=== PATIENT | female | born 1990 | race American Indian/Alaskan Native ===

== ENCOUNTER 2016-05-27 09:29 | Inpatient (IN) | payer MEDICAID ==
[2016-05-27] MEDS ORDERED: LACTATED RINGERS 1,000 ML IV SCH ×2 (10:00→11:00)
[2016-05-27] MEDS ORDERED: SUBLIMAZE ONE (10:00)
[2016-05-27 10:18] LABS: Hematocrit 32.6 % (30.3-42.9); Hemoglobin 10.3 gm/dl (10.1-14.3); Mean Corpuscular HGB Conc 32 % (30-34); Mean Corpuscular Volume 73 fl (79-97); Platelet Count 252 K/mm3 (140-440); Red Blood Count 4.46 M/mm3 (3.65-5.03); Red Cell Distribution Width 19.2 % (13.2-15.2); White Blood Count 6.8 K/mm3 (4.5-11.0)
[2016-05-27 10:28] LABS: Mean Corpuscular Hemoglobin 23 pg (28-32)
--- NOTE | 2016-05-27 10:31 | History and Physical Report ---
History of Present Illness Date of examination: 05/27/16 (sent from OB office in active labor) Date of admission: 05/27/16 09:29 Chief complaint: ctx starting this AM History of present illness: EDC 05-20-16 Past History : 4 Term Births: 3 Living Children: 4 Para: 3 # 1 Delivery date: 2010 Weeks Gestation: term Delivery type: Anesthesia type: epidural Delivery location: [facility] Sex: Female weight: 6 Comments: denies complications # 2 Delivery date: 2011 Weeks Gestation: term Delivery type: Anesthesia type: epidural Delivery location: [facility] Sex: Male weight: 8 Comments: denies complications # 3 Delivery date: 2012 Weeks Gestation: term Delivery type: Anesthesia type: epidural Delivery location: [facility] Infant Sex: Female weight: 6 Comments: denies complications Past Medical History: Negative Past Medical History Past Surgical History: Negative Past Surgical History Past Medical History 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 Infection History Hx of STD: chlamydia HIV Risk Eval: low risk Hepatitis B Risk Eval: low risk Personal hx. of genital herpes: no Partner hx. of genital herpes: no Rash, Viral, or Febrile illness since last LMP? no Varicella/Chicken Pox Status: Previous Disease TB Risk: no Genetic History Congenital Heart Defect: Mom: no Dad: no Roosevelt Disease: Mom: no Dad: no Thalassemia Mom: no Dad: no Neural Tube Defect Mom: no Dad: no Down's Syndrome Mom: no Dad: no Carl-Sachs Mom: no Dad: no Sickle Cell Disease/Trait Mom: no Dad: no Hemophilia Mom: no Dad: no Muscular Dystrophy Mom: no Dad: no Cystic Fibrosis Mom: no Dad: no Hobbs Chorea Mom: no Dad: no Mental Retardation Mom: no Dad: no Fragile X Mom: no Dad: no Other Genetic/Chromosomal Disorder Mom: no Dad: no Child w/other defect Mom: no Dad: no Enviromental Exposures Xray Exposure: no Medication, drug, or alcohol use since LMP: no Chemical/Other Exposure: no Exposure to Cat Liter: no Hx of Parvovirus (Fifth Disease): no Occupational Exposure to Children: none Current Allergies: No known allergies Laboratory Results Date/Time Collected: 11/18/2015 Routine Urinalysis Leukocytes: trace Nitrite: negative Urobilinogen: negative Protein: Negative Blood: negative Ketone: negative Bilirubin: negative Glucose: Negative Urine HCG: positive Review of Systems General Denies fever, chills, sweats, anorexia, fatigue, weakness, malaise, weight loss and sleep disorder. Denies nausea, vomiting, headache, swelling of legs, abdominal pain, vaginal discharge, vaginal bleeding and contractions. Denies vaginal discharge, incontinence, dysuria, hematuria, urinary frequency, amenorrhea, menorrhagia, abnormal vaginal bleeding, pelvic pain, genital sores, decreased libido, painful periods, painful sex, urinary urgency, hot flashes, vaginal dryness, vaginal itching and vaginal odor. CV Denies chest pains, palpitations, syncope, dyspnea on exertion, orthopnea, PND and peripheral edema. Resp Denies cough, dyspnea at rest, excessive sputum, hemoptysis, wheezing and pleurisy. GI Denies nausea, vomiting, diarrhea, constipation, change in bowel habits, abdominal pain, melena, hematochezia, jaundice, gas/bloating, indigestion/ heartburn, dysphagia and odynophagia. Endo Denies cold intolerance, heat intolerance, polydipsia, polyphagia, polyuria and unusual weight change. Breast Denies left breast lump, right breast lump, nipple discharge, bloody discharge from nipple, breast pain, abnormal mammogram and breast enlargement. MS Denies back pain, joint pain, joint swelling, muscle cramps, muscle weakness, stiffness, arthritis, sciatica, restless legs, leg pain at night and leg pain with exertion. Derm Denies rash, itching, dryness and suspicious lesions. Neuro Denies paralysis, paresthesias, headache, seizures, tremors, vertigo, transient blindness, frequent falls, frequent headaches and difficulty walking. Psych Denies depression, anxiety, irritability and mood swings. Eyes Denies blurring, diplopia, irritation, discharge, vision loss, eye pain and photophobia. ENT Denies earache, ear discharge, tinnitus, decreased hearing, nasal congestion, nosebleeds, sore throat and hoarseness. Allergy Denies urticaria, allergic rash, hay fever and recurrent infections. Heme Denies abnormal bruising, bleeding and enlarged lymph nodes. PHYSICAL EXAM HEENT: PERRLA, normal conjunctiva, external nose and nasal mucosa normal, oropharynx clear Neck/Thyroid: supple, thyroid normal Skin no significant abnormal lesions or rashes Chest: respiratory effort normal, clear to auscultation Breasts: normal without skin changes or masses CV: regular, normal S1-S2, no murmur, no rub, no gallop Abdomen: normal bowel sounds, soft, nontender, no HSM Musculoskeletal: grossly normal ROM in joints, no joint tenderness or muscle weakness Neuro: grossly normal DTRs, sensation, strength, cranial nerves Extremities: no clubbing, cyanosis, or edema [employer] Exams Vulva/Vagina: No lesions, normal BUS, normal rugae Cervix: No lesions; no cervical motion tenderness Uterus: normal size and position, midline, mobile Adnexae: no masses or tenderness Rectovaginal: no masses or tenderness Past History - Obstetrical History Expected Date of Delivery: 05/20/16 Actual Gestation: 41 Week(s) 0 Day(s) : 4 Para: 3 Number of Living Children: 3 Medications and Allergies Allergies Allergy/AdvReac Type Severity Reaction Status Date / Time No Known Allergies Allergy Verified 04/12/16 15:48 Home Medications Medication Instructions Recorded Confirmed Last Taken Type Vit-Fe Fumar-FA [ 1 tab PO QDAY 04/12/16 05/27/16 05/20/16 History Vitamin] Active Meds: Active Medications Fentanyl (Sublimaze) 100 mcg IV ONCE ONE Stop: 05/27/16 10:07 Lactated Ringer's (Lactated Ringers) 1,000 mls @ 125 mls/hr IV DIRECT YADIRA Last Admin: 05/27/16 10:15 Dose: 125 mls/hr - Vital Signs Vital signs: Vital Signs Pulse BP 77 122/80 05/27/16 09:29 05/27/16 09:29 Temp Pulse Resp BP Pulse Ox 97.1 F L 77 20 122/80 05/27/16 09:44 05/27/16 09:29 05/27/16 10:19 05/27/16 09:44 - Physical Exam Breasts: Positive: deferred Cardiovascular: Regular rate, Normal S1, Normal S2 Lungs: Positive: Normal air movement Abdomen: Positive: normal appearance, soft, normal bowel sounds. Negative: distention, tenderness Genitourinary (Female): Positive: normal external genitalia, normal perenium Vulva: both: normal Vagina: Positive: normal moisture. Negative: discharge Cervix: Negative: lesion, discharge Uterus: Positive: normal size, normal contour Adnexa: both: normal Anus/Rectum: Positive: normal perianal skin, heme negative. Negative: rectal mass, hemorrhoids Extremities: Positive: normal Deep Tendon Reflex Grade: Normal +2 - Obstetrical FHR: category 1 Uterine Contraction Monitor Mode: External Cervical Dilatation: 5.5 Cervical Effacement Percentage: 70 station: -1 Uterine Contraction Pattern: Regular Uterine Contraction Intensity: Moderate Results Result Diagrams: 05/27/16 10:00 All other labs normal. Laboratory Data-Patient Name: RAUL BAUTISTA Test Date Result Blood Type 12/02/2015 O Rh 12/02/2015 Positive Antibody Screen negative Rubella 12/02/2015 IMMUNE Serology (RPR) 12/02/2015 NR HBsAg 12/02/2015 Negative Hemoglobin 02/11/2016 9.4 Hematocrit 02/11/2016 28.9 Platelets 12/02/2015 282 [id number] Chlamydia DNA 11/19/2015 Negative GC DNA/Culture 11/19/2015 Urine Culture 12/02/2015 Final report Group B Strep cult Negative PAP HIV 12/02/2015 AFP/Quad Screen 12/02/2015 Glucola Test 3hr GTT (Fasting) 1 hr 2 hr 3 hr [facility]-Patient Name:RAUL BAUTISTA Test Date Result Varicella Ab Sickle Cell 12/02/2015 Negative PPD Fibronectin Cystic Fibrosis Parvovirus TSH Free T4 Hepatitis C ALT AST Uric Acid Creatinine 24 hr Urine Protein KATI Assessment and Plan - Patient Problems (1) 41 weeks gestation of Onset Date: ~05/27/16 Current Visit: Yes Status: Acute Plan to address problem: pt sent from OB office in active labor SVE in office 5-6, 70,0 with BBOW GBS negative Orders in EMR
[2016-05-27] MEDS ORDERED: ZOFRAN IV PRN (11:00)
[2016-05-27] MEDS ORDERED: MINERAL OIL PO PRN (11:00)
[2016-05-27] MEDS ORDERED: SUBLIMAZE IV ONE (11:00)
[2016-05-27] MEDS ORDERED: ePHEDrine SULFATE IV PRN (11:00)
[2016-05-27] MEDS ORDERED: PITOCin/NS 20 UNIT/1000ML DRIP 20 UNITS/1,000 ML BAG IV SCH (11:00)
[2016-05-27] MEDS ORDERED: PITOCin/NS 30 UNIT/500ML 30 UNITS/500 ML BAG IV SCH (11:00)
[2016-05-27] MEDS ORDERED: XYLOCAINE 2% INFILTRATI ONE (11:00)
[2016-05-27] MEDS ORDERED: BRETHINE SUB-Q PRN (11:00)
--- NOTE | 2016-05-27 11:28 | Progress Note ---
Assessment and Plan - Patient Problems (1) 41 weeks gestation of Onset Date: ~05/27/16 Current Visit: Yes Status: Acute Plan to address problem: anticipate delivery Will Rupture bag after epidural is placed Pt tolerating labor well. Subjective - Subjective Date of service: 05/27/16 (bolusing for epidural; pt c/o pressure) Interval history: EDC 05-20-16 Past History : 4 Term Births: 3 Living Children: 4 Para: 3 # 1 Delivery date: 2010 Weeks Gestation: term Delivery type: Anesthesia type: epidural Delivery location: [facility] Sex: Female weight: 6 Comments: denies complications # 2 Delivery date: 2011 Weeks Gestation: term Delivery type: Anesthesia type: epidural Delivery location: [facility] Infant Sex: Male weight: 8 Comments: denies complications # 3 Delivery date: 2012 Weeks Gestation: term Delivery type: Anesthesia type: epidural Delivery location: [facility] Sex: Female weight: 6 Comments: denies complications Past Medical History: Negative Past Medical History Past Surgical History: Negative Past Surgical History Past Medical History 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 Infection History Hx of STD: chlamydia HIV Risk Eval: low risk Hepatitis B Risk Eval: low risk Personal hx. of genital herpes: no Partner hx. of genital herpes: no Rash, Viral, or Febrile illness since last LMP? no Varicella/Chicken Pox Status: Previous Disease TB Risk: no Genetic History Congenital Heart Defect: Mom: no Dad: no Roosevelt Disease: Mom: no Dad: no Thalassemia Mom: no Dad: no Neural Tube Defect Mom: no Dad: no Down's Syndrome Mom: no Dad: no Carl-Sachs Mom: no Dad: no Sickle Cell Disease/Trait Mom: no Dad: no Hemophilia Mom: no Dad: no Muscular Dystrophy Mom: no Dad: no Cystic Fibrosis Mom: no Dad: no Purvi Chorea Mom: no Dad: no Mental Retardation Mom: no Dad: no Fragile X Mom: no Dad: no Other Genetic/Chromosomal Disorder Mom: no Dad: no Child w/other defect Mom: no Dad: no Enviromental Exposures Xray Exposure: no Medication, drug, or alcohol use since LMP: no Chemical/Other Exposure: no Exposure to Cat Liter: no Hx of Parvovirus (Fifth Disease): no Occupational Exposure to Children: none Current Allergies: No known allergies Laboratory Results Date/Time Collected: 11/18/2015 Routine Urinalysis Leukocytes: trace Nitrite: negative Urobilinogen: negative Protein: Negative Blood: negative Ketone: negative Bilirubin: negative Glucose: Negative Urine HCG: positive Review of Systems General Denies fever, chills, sweats, anorexia, fatigue, weakness, malaise, weight loss and sleep disorder. Denies nausea, vomiting, headache, swelling of legs, abdominal pain, vaginal discharge, vaginal bleeding and contractions. Denies vaginal discharge, incontinence, dysuria, hematuria, urinary frequency, amenorrhea, menorrhagia, abnormal vaginal bleeding, pelvic pain, genital sores, decreased libido, painful periods, painful sex, urinary urgency, hot flashes, vaginal dryness, vaginal itching and vaginal odor. CV Denies chest pains, palpitations, syncope, dyspnea on exertion, orthopnea, PND and peripheral edema. Resp Denies cough, dyspnea at rest, excessive sputum, hemoptysis, wheezing and pleurisy. GI Denies nausea, vomiting, diarrhea, constipation, change in bowel habits, abdominal pain, melena, hematochezia, jaundice, gas/bloating, indigestion/ heartburn, dysphagia and odynophagia. Endo Denies cold intolerance, heat intolerance, polydipsia, polyphagia, polyuria and unusual weight change. Breast Denies left breast lump, right breast lump, nipple discharge, bloody discharge from nipple, breast pain, abnormal mammogram and breast enlargement. MS Denies back pain, joint pain, joint swelling, muscle cramps, muscle weakness, stiffness, arthritis, sciatica, restless legs, leg pain at night and leg pain with exertion. Derm Denies rash, itching, dryness and suspicious lesions. Neuro Denies paralysis, paresthesias, headache, seizures, tremors, vertigo, transient blindness, frequent falls, frequent headaches and difficulty walking. Psych Denies depression, anxiety, irritability and mood swings. Eyes Denies blurring, diplopia, irritation, discharge, vision loss, eye pain and photophobia. ENT Denies earache, ear discharge, tinnitus, decreased hearing, nasal congestion, nosebleeds, sore throat and hoarseness. Allergy Denies urticaria, allergic rash, hay fever and recurrent infections. Heme Denies abnormal bruising, bleeding and enlarged lymph nodes. PHYSICAL EXAM HEENT: PERRLA, normal conjunctiva, external nose and nasal mucosa normal, oropharynx clear Neck/Thyroid: supple, thyroid normal Skin no significant abnormal lesions or rashes Chest: respiratory effort normal, clear to auscultation Breasts: normal without skin changes or masses CV: regular, normal S1-S2, no murmur, no rub, no gallop Abdomen: normal bowel sounds, soft, nontender, no HSM Musculoskeletal: grossly normal ROM in joints, no joint tenderness or muscle weakness Neuro: grossly normal DTRs, sensation, strength, cranial nerves Extremities: no clubbing, cyanosis, or edema [employer]ATTLE [employer] Exams Vulva/Vagina: No lesions, normal BUS, normal rugae Cervix: No lesions; no cervical motion tenderness Uterus: normal size and position, midline, mobile Adnexae: no masses or tenderness Rectovaginal: no masses or tenderness Patient reports: movement normal Objective - Vital Signs Vital Signs: Vital Signs - 12hr 05/27/16 05/27/16 05/27/16 09:29 09:44 10:19 Temperature 97.1 F L Pulse Rate 77 Respiratory 18 20 Rate Blood Pressure 122/80 Blood Pressure 122/80 [Left Arm] O2 Sat by Pulse Oximetry 05/27/16 05/27/16 05/27/16 10:49 11:05 11:23 Temperature Pulse Rate 64 104 H Respiratory 20 Rate Blood Pressure 126/87 Blood Pressure [Left Arm] O2 Sat by Pulse 62 L Oximetry 05/27/16 11:24 Temperature Pulse Rate 76 Respiratory Rate Blood Pressure Blood Pressure [Left Arm] O2 Sat by Pulse 100 Oximetry - Exam Breasts: deferred Cardiovascular: Regular rate Lungs: Normal air movement Abdomen: Present: normal appearance, soft. Absent: distention, tenderness Vulva: both: normal Uterus: Present: normal FHR: auscultation normal, category 1 Uterine Contraction Monitor Mode: External Cervical Dilatation: 7.5 (BBOW) Cervical Effacement Percentage: 100 station: 0 Uterine Contraction Pattern: Regular Uterine Tone Measurement Phase: Resting Uterine Contraction Intensity: Moderate Extremities: normal Deep Tendon Reflex Grade: Normal +2 - Labs Labs: Abnormal Labs 05/27/16 10:00 MCV 73 L MCH 23 L RDW 19.2 H Laboratory Results - last 24 hr 05/27/16 05/27/16 10:00 10:00 WBC 6.8 RBC 4.46 Hgb 10.3 Hct 32.6 MCV 73 L MCH 23 L MCHC 32 RDW 19.2 H Plt Count 252 Blood Type O POSITIVE Antibody Screen Negative
[2016-05-27] MEDS ORDERED: METHERGINE IM ONE (11:42)
[2016-05-27] MEDS ORDERED: METHERGINE IM PRN (11:59)
--- NOTE | 2016-05-27 11:59 | Procedure Note ---
OB Delivery Note - Delivery Date of Delivery: 05/27/16 Appellate Conferee: SERENE MCKENZIE Estimated blood loss: other (400cc) - Vaginal Delivery presentation: vertex Delivery position: OA Intrapartum events: meconium (NICU team present for delivery) Delivery induction: none Delivery monitor: external FHT, external uterine Route of delivery: Delivery placenta: spontaneous Delivery cord: 3 umbilical vessels Episiotomy: none Delivery laceration: none Anesthesia: none Delivery comments: live born male over intact perineum Baby handed to waiting NICU team due to thick meconium Cord blood obt Placenta and membrane del complete and intact, 3 vessel cord. Uterus boggy Clots expressed Methergin IM given 8/9, EBL 400, Wgt 7-11 Mom and baby remain LDR stable FF @ umb Lochia mod - Infant A at 1 minute: 8 at 5 minutes: 9 Gender: Male (wgt 7-11)
[2016-05-27] MEDS ORDERED: TYLENOL PO PRN (12:01)
[2016-05-27] MEDS ORDERED: MILK OF MAGNESIA PO PRN (12:01)
[2016-05-27] MEDS ORDERED: LANSINOH TP PRN (12:01)
[2016-05-27] MEDS ORDERED: BENADRYL PO PRN (12:01)
[2016-05-27] MEDS ORDERED: TUCKS PAD TP PRN (12:01)
[2016-05-27] MEDS ORDERED: PHENERGAN PO PRN (12:01)
[2016-05-27] MEDS ORDERED: DULCOLAX PR PRN (12:01)
[2016-05-27] MEDS ORDERED: DERMOPLAST TP PRN (12:01)
[2016-05-27] MEDS ORDERED: SODIUM CHLORIDE FLUSH SYRINGE 10 ML IV NR (13:00)
[2016-05-27] MEDS: METHERGINE PO SCH ×2 (14:10→22:22)
[2016-05-27] MEDS: NORCO 5/325 PO PRN (14:10)
[2016-05-27] MEDS: MOTRIN PO SCH ×2 (14:11→22:22)
[2016-05-27] MEDS: COLACE PO SCH (22:23)
[2016-05-28 00:45] LABS: Hematocrit 32.6 % (30.3-42.9); Hemoglobin 10.2 gm/dl (10.1-14.3)
[2016-05-28] MEDS: MOTRIN PO SCH ×4 (01:01→23:32)
[2016-05-28] MEDS: METHERGINE PO SCH (05:50)
[2016-05-28] MEDS ORDERED: BOOSTRIX IM ONE (06:00)
[2016-05-28] MEDS ORDERED: M-M-R II VACCINE SUB-Q ONE (06:00)
--- NOTE | 2016-05-28 08:41 | Progress Note ---
Assessment and Plan patient doing well w/o complaints. LIBBY Tolentino, H&H 10.2/32.6. Plan for d/c home today w/ routine f/u in office. - Patient Problems (1) (normal spontaneous vaginal delivery) Current Visit: Yes Status: Acute Subjective - Subjective Date of service: 05/28/16 Principal diagnosis: day #1 s/p Patient reports: appetite normal, voiding normally, pain well controlled, ambulating normally, no dizzy ambulation, no nauseated : doing well, nursing well Objective - Vital Signs Latest vital signs: Vital Signs Temp Pulse Pulse Resp BP BP Pulse Ox 05/28/16 04:45 98.6 F 68 16 112/67 05/28/16 00:25 98.6 F 67 16 102/67 05/27/16 22:22 18 05/27/16 19:30 98.6 F 77 16 122/70 05/27/16 16:04 98.4 F 54 L 18 114/73 05/27/16 13:15 98.3 F 64 20 113/77 05/27/16 12:28 96 H 129/72 05/27/16 12:07 85 182/83 05/27/16 11:43 90 149/69 05/27/16 11:34 89 99 05/27/16 11:29 98 H 100 05/27/16 11:24 76 100 05/27/16 11:23 104 H 62 L 05/27/16 11:05 64 126/87 05/27/16 10:49 20 05/27/16 10:19 20 05/27/16 09:44 97.1 F L 18 122/80 05/27/16 09:29 77 122/80 Intake and Output 05/27/16 05/28/16 05/28/16 22:59 06:59 14:59 Intake Total 485 700 Output Total 1000 Balance -515 700 Intake: IV 125 Left Hand 125 Oral 360 Intake, Free Water 700 Output: Urine 1000 Void 1000 Other: Total, Intake Amount 360 Total, Output Amount 300 - Exam Breasts: Present: normal, Cardiovascular: Present: Regular rate Lungs: Present: Clear to auscultation, Normal air movement Abdomen: Present: normal appearance, soft, normal bowel sounds Vulva: both: normal Uterus: Present: normal, firm, fundal height at umbilicus Extremities: Present: normal Deep Tendon Reflex Grade: Normal +2 - Labs Labs: Abnormal lab results 05/27/16 Range/Units 10:00 MCV 73 L (79-97) fl MCH 23 L (28-32) pg RDW 19.2 H (13.2-15.2) %
--- NOTE | 2016-05-28 08:44 | Discharge Summary ---
Providers - Providers Date of Admission: 05/27/16 09:29 Date of discharge: 05/28/16 (desires d/c home) Attending physician: TERI SMITH Primary care physician: GINA HERNANDEZ Hospitalization Reason for admission: active labor Delivery: Episiotomy: none Laceration: none Other procedures: none complications: none Discharge diagnosis: IUP at term delivered baby: male Hospital course: uncomplicated vaginal Condition at discharge: Good Disposition: DISCHARGED TO HOME OR SELFCARE - Discharge Diagnoses (1) (normal spontaneous vaginal delivery) Status: Acute Plan - Discharge Medications Prescriptions: Ibuprofen [Motrin 800 MG tab] 800 mg PO Q8HR PRN #30 tablet PRN Reason: Pain Lidocain2.5%/Prilocai2.5% [Emla] 5 gm TP ONCE PRN #1 tube PRN Reason: Pain - Provider Discharge Summary Activity: routine, no sex for 6 weeks, no heavy lifting 4 weeks, no strenuous exercise Diet: routine Instructions: routine Additional instructions: [] Smoking cessation referral if applicable(refer to patient education folder for contact #) [] Refer to [facility]'s [facility] Booklet Call your doctor immediately for: * Fever > 100.5 * Heavy vaginal bleeding ( >1 pad per hour) * Severe persistent headache * Shortness of breath * Reddened, hot, painful area to leg or breast * Drainage or odor from incision. * Keep incision clean and dry at all times and follow doctor's instructions regarding bathing/showering - Follow up plan Follow up: GINA HERNANDEZ MD [Primary Care Provider] - 7 Days (Congratulations! Please call [phone] to scheudule your son's circumcision in 1 week and your visit in 4 weeks. Bring EMLA cream to your son's visit and await further instructions. Call for any questions or concerns. )
[2016-05-28] MEDS: NORCO 5/325 PO PRN (10:39)
[2016-05-28] MEDS: PRENATAL VITAMIN PO SCH (10:39)
[2016-05-28] MEDS: COLACE PO SCH (21:33)
[2016-05-29] MEDS: MOTRIN PO SCH ×2 (05:26→08:53)
[2016-05-29 08:46] VITALS: BP 108/67
[2016-05-29] MEDS: PRENATAL VITAMIN PO SCH (08:55)
[2016-05-29] MEDS: COLACE PO SCH (08:55)
== END 2016-05-29 14:00 | disposition home or self-care (01) | DRG 775 ==
LOC: LD 09:29 → OB 13:41
PROVIDERS: ADMIT Obstetrics & Gynecology; ATTEND Obstetrics & Gynecology
PROC: 10E0XZZ Delivery of Products of Conception, External Approach (ICD-10-PCS; principal; 2016-05-27)
PROC: 3E0234Z Introduction of Serum, Toxoid and Vaccine into Muscle, Percutaneous Approach (ICD-10-PCS; 2016-05-27)
DX: O77.0 Labor and delivery complicated by meconium in amniotic fluid (principal); Z3A.41 41 weeks gestation of pregnancy; Z37.0 Single live birth
CPT/HCPCS: 36415; 85014; 85018; 85027; 86592; 86850; 86900; 86901; 88307; 90715; 99211; G0463; J2210; J2590; J3010; J7120

== ENCOUNTER 2017-09-09 09:38 | Inpatient (IN) | payer MEDICAID ==
--- NOTE | 2017-09-08 17:10 | History and Physical Report ---
History of Present Illness Date of examination: 09/08/17 History of present illness: Admitted for primary section due to persistent breech presentation. Menstrual History Regularity: regular Menses every: 28 days Duration: 5 LMP: 12/09/2016 LMP reliability: definite LMP character: normal test type: urine test Date: 02/15/2017 BC at conception: none EDC Calculations LMP: 09/15/2017 EDC Confirmation: 09/15/2017 Past History : 5 Term Births: 4 Living Children: 4 Para: 4 # 1 Delivery date: 2010 Weeks Gestation: term Delivery type: Anesthesia type: epidural Delivery location: [facility] Sex: Female weight: 6 Comments: denies complications # 2 Delivery date: 2011 Weeks Gestation: term Delivery type: Anesthesia type: epidural Delivery location: [facility] Sex: Male weight: 8 Comments: denies complications # 3 Delivery date: 2012 Weeks Gestation: term Delivery type: Anesthesia type: epidural Delivery location: [facility] Infant Sex: Female weight: 6 Comments: denies complications # 4 Delivery date: 05/27/2016 Weeks Gestation: 41 Delivery type: Vaginal Anesthesia type: none Delivery location: [facility] Sex: male weight: 7.69 Comments: postdates; meconium Past Medical History: Negative Past Medical History Past Surgical History: Negative Past Surgical History Past Medical History Abnormal PAP: negative NABIL Exposure: negative Infertility: negative Uterine Anomaly: negative Uterine Surgery (not C/S): negative Other Gynecologic Problems: negative Social Hx: Patient is single Smoking History: Patient has never smoked. Infection History Hx of STD: none HIV Risk Eval: low risk Hepatitis B Risk Eval: low risk Personal hx. of genital herpes: no Partner hx. of genital herpes: no Varicella/Chicken Pox Status: Previous Disease TB Risk: no Genetic History Congenital Heart Defect: Mom: no Dad: no Roosevelt Disease: Mom: no Dad: no Thalassemia Mom: no Dad: no Neural Tube Defect Mom: no Dad: no Down's Syndrome Mom: no Dad: no Carl-Sachs Mom: no Dad: no Sickle Cell Disease/Trait Mom: no Dad: no Hemophilia Mom: no Dad: no Muscular Dystrophy Mom: no Dad: no Cystic Fibrosis Mom: no Dad: no Purvi Chorea Mom: no Dad: no Mental Retardation Mom: no Dad: no Fragile X Mom: no Dad: no Other Genetic/Chromosomal Disorder Mom: no Dad: no Child w/other defect Mom: no Dad: no Enviromental Exposures Xray Exposure: no Medication, drug, or alcohol use since LMP: no Chemical/Other Exposure: no Exposure to Cat Liter: no Hx of Parvovirus (Fifth Disease): no Occupational Exposure to Children: none FALSECurrent Allergies: No known allergies Past History Past Medical History: other (See HPI) Past Surgical History: other (See HPI) TELEMARKETING AGENT History: other (See HPI) Family/Genetic History: other (See HPI) Social history: single, full code, other (See HPI) - Obstetrical History Expected Date of Delivery: 09/15/17 Actual Gestation: 39 Week(s) 1 Day(s) : 5 Para: 4 Hx # Term Pregnancies: 4 Number of Pregnancies: 0 Spontaneous Abortions: 0 Induced : 0 Number of Living Children: 4 Medications and Allergies Allergies Allergy/AdvReac Type Severity Reaction Status Date / Time No Known Allergies Allergy Verified 04/12/16 15:48 Home Medications Medication Instructions Recorded Confirmed Last Taken Type Vit-Fe Fumar-FA [ 1 tab PO QDAY 04/12/16 09/09/17 09/08/17 08: 00 History Vitamin] 1 TAB Ibuprofen [Motrin 800 MG tab] 800 mg PO Q6H PRN #30 tablet 09/09/17 Unknown Rx oxyCODONE /ACETAMINOPHEN [Percocet 1 - 2 tab PO Q4H PRN #30 tablet 09/09/17 Unknown Rx 5/325 mg] Results Result Diagrams: 09/09/17 10:30 All other labs normal. Assessment and Plan - Patient Problems (1) Breech presentation of fetus Current Visit: No Status: Acute Qualifiers: Fetus number: single or unspecified fetus Qualified Code(s): O32.1XX0 - Maternal care for breech presentation, not applicable or unspecified Plan to address problem: Discuss the risks of the surgery including infection, bleeding possibly heavy enough to require a blood transfusion, possible damage to bowel, bladder or ureter. Her questions were answered. Patient understands and desires to proceed (2) with 39 completed weeks gestation Current Visit: No Status: Acute
[2017-09-09] MEDS ORDERED: PITOCin/NS 20 UNIT/1000ML DRIP 20 UNITS/1,000 ML BAG IV SCH ×2 (10:00→14:33)
[2017-09-09] MEDS ORDERED: PEPCID IV NR (10:00)
[2017-09-09] MEDS ORDERED: BICITRA PO NR (10:00)
[2017-09-09] MEDS ORDERED: ANCEF/STERILE WATER 2 GM/20 ML 2 GM/20 ML SYRINGE IV NR (10:00)
[2017-09-09] MEDS ORDERED: REGLAN IV NR (10:00)
[2017-09-09 11:03] LABS: Basophils % (Auto) 0.3 % (0.0-1.8); Eosinophils % (Auto) 0.7 % (0.0-4.3); Hematocrit 31.5 % (30.3-42.9); Hemoglobin 9.9 gm/dl (10.1-14.3); Lymphocytes % (Auto) 36.2 % (13.4-35.0); Mean Corpuscular HGB Conc 32 % (30-34); Mean Corpuscular Volume 73 fl (79-97); Monocytes # (Auto) 0.6 K/mm3 (0.0-0.8); Monocytes % (Auto) 11.4 % (0.0-7.3); Platelet Count 244 K/mm3 (140-440)
[2017-09-09 11:04] LABS: Mean Corpuscular Hemoglobin 23 pg (28-32)
[2017-09-09] MEDS: LACTATED RINGERS 1,000 ML IV SCH ×2 (11:34→11:35)
[2017-09-09] MEDS ORDERED: NACL 0.9% IR ONE (11:42)
[2017-09-09] MEDS ORDERED: WATER FOR IRRIG STERILE IR ONE (11:42)
[2017-09-09] MEDS ORDERED: MORPHINE ONE (11:45)
--- NOTE | 2017-09-09 11:51 | Ultrasound Report ---
ULTRASOUND OB LIMITED History: Position Technique: Transabdominal ultrasound with Doppler interrogation. Gestation: Single Position: Transverse with head to maternal left Heart Rate: 162 BPM
[2017-09-09] MEDS ORDERED: TORADOL ONE (12:14)
[2017-09-09] MEDS ORDERED: NEO SYNEPHRINE/NS Syringe(OR USE) IV ONE (12:15)
--- NOTE | 2017-09-09 13:00 | Operative Report ---
Operative Report Operative Report: Date of procedure: 09/09/2017 Pre-operative diagnosis: Breech Presentation at 39 weeks gestation Post-operative diagnosis: Transverse presentation, meconium stained fluid Procedure name(s): Primary low transverse section Surgeon: Shine Douglas MD Reed Fixer: Talisha Andre CST Anesthesia: Spinal EBL: 900 mL Complications: Right uterine artery laceration Findings: Normal uterus tubes and ovaries, female transverse presentation , weight 7 lb. 2 oz., Apgars 8 at 1 minute 9 at 5 minutes. Meconium-stained fluid Specimen(s): None Procedure: The patient was brought to the operating room. A spinal was placed without any complications. She was then placed in left lateral tilt. Prepped and draped in the usual sterile manner. After testing for adequate anesthesia level, a Pfannenstiel incision was made. This incision was taken down to the fascia. The fascia was then nicked in the midline. This incision was extended out laterally with Lopez scissors. The fascia was then sharply and bluntly from the underlying rectus muscles. The rectus muscles were bluntly and sharply . The peritoneum was then entered with the tanning drum operator's fingers. This incision was spread vertically with care not to damage the bladder below. Joe retractor was then placed. The bladder flap was then formed sharply and bluntly with Metzenbaum scissors. A transverse incision was made in lower uterine segment. This incision was extended laterally with the operators fingers. The amniotic sac was then entered bluntly with the tanning drum operator' s fingers. The was transverse back up position. I converted to a vertex presentation.the infant was delivered on vertex position. The infant was bulb suctioned on the mother's abdomen. Cord was double clamped and cut. The was then passed to the nursery personnel who were in attendance. The above scores were given by the nursery personnel. The placenta was then bluntly removed. The uterus was then externalized and wiped clean the remaining products. The uterine artery laceration was then identified and repaired with [id number] suture and good hemostasis. The uterine incision was closed in layers. The first incision was closed in a locking manner using 0 Vicryl. This was followed by imbricating stitch also with 0 Vicryl. This closure was hemostatic. The bladder flap was copiously irrigated and found to be hemostatic. The pelvis was copiously irrigated and found to be hemostatic. The uterus was then placed back to the patient's abdomen. The retractors were removed. The rectus muscles were inspected and found to be hemostatic. The fascia was then closed in a running manner using 0 Vicryl. This incision was hemostatic irrigation Bovie. The skin was reapproximated with 4-0 Vicryl subcuticularly. The patient tolerated procedure well. Her urine was clear. The infant was admitted to the well baby nursery. The patient was accompanied to recovery room in good condition. Instrument count correct x-3.
[2017-09-09] MEDS ORDERED: NARCAN 0.4 MG/1 ML IV PRN ×2 (13:02→14:33)
[2017-09-09] MEDS ORDERED: ZOFRAN IV PRN ×2 (13:02→14:33)
[2017-09-09] MEDS ORDERED: PHENERGAN PR PRN (13:02)
[2017-09-09] MEDS ORDERED: PHENERGAN PO PRN (13:02)
--- NOTE | 2017-09-09 13:02 | Anesthesia Consultation ---
Anesthesia Consult and Med Hx Date of service: 09/09/17 - Airway Anesthetic Teeth Evaluation: Good ROM Head & Neck: Adequate Mental/Hyoid Distance: Adequate Mallampati Class: Class II Intubation Access Assessment: Good - Pulmonary Exam CTA: Yes - Cardiac Exam Cardiac Exam: No Murmur - Pre-Operative Health Status ASA Pre-Surgery Classification: ASA2 Proposed Anesthetic Plan: Epidural - Pulmonary Hx Asthma: No COPD: No Hx Pneumonia: No - Cardiovascular System Hx Hypertension: No - Central Nervous System Hx Seizures: No Hx Psychiatric Problems: No - Endocrine Hx Renal Disease: No Hx End Stage Renal Disease: No Hx Hypothyroidism: No Hx Hyperthyroidism: No - Hematic Hx Anemia: No Hx Sickle Cell Disease: No - Other Systems Hx Alcohol Use: No
--- NOTE | 2017-09-09 13:02 | Post Anesthesia Evaluation ---
- Post Anesthesia Evaluation Patient Participated: Yes Airway Patent: Yes Stable Respiratory Function: Yes Nausea/Vomiting: No Temp > 96.8F: Yes Pain Manageable: Yes Adequeate Hydration: Yes Anesthesia Complications: No
[2017-09-09] MEDS ORDERED: fentaNYL-BUPIV 2 MCG/ML-0.125% 200 MCG/100 ML BAG EPIDURAL SCH (14:00)
[2017-09-09] MEDS ORDERED: SODIUM CHLORIDE FLUSH SYRINGE 10 ML IV SCH (14:00)
[2017-09-09] MEDS ORDERED: LANSINOH TP PRN (14:33)
[2017-09-09] MEDS ORDERED: SODIUM CHLORIDE FLUSH SYRINGE 10 ML IV NR (14:33)
[2017-09-09] MEDS ORDERED: TUCKS PAD TP PRN (14:33)
[2017-09-09] MEDS ORDERED: ZOFRAN ONE (18:02)
[2017-09-09] MEDS: TORADOL IV PRN (19:53)
[2017-09-09] MEDS: D5LR 1,000 ML IV SCH (20:00)
[2017-09-10] MEDS: ANCEF/NS 1 GM/50 ML 1 GM/50 ML BAG IV SCH ×2 (00:20→09:09)
[2017-09-10 01:17] LABS: Hematocrit 25.7 % (30.3-42.9); Hemoglobin 8.2 gm/dl (10.1-14.3)
[2017-09-10] MEDS: D5LR 1,000 ML IV SCH (04:16)
[2017-09-10] MEDS: TORADOL IV PRN (04:19)
[2017-09-10] MEDS ORDERED: ANCEF/NS 1 GM/50 ML 1 GM/50 ML BAG IV SCH (08:00)
--- NOTE | 2017-09-10 08:13 | Progress Note ---
Assessment and Plan - Patient Problems (1) delivery delivered Onset Date: ~09/10/17 Current Visit: Yes Status: Acute Plan to address problem: Sitting up feeding NB VSS FF below umb Lochia small Dressing D&I to be removed H &H 10/01 Pt denies any s/sx of anemia Chronic anemia Will monitor closely when OOB Stable s/p c/s P: continue pathway Advance diet and activity as tolerated. Po Iron increased to TID. Subjective - Subjective Date of service: 09/10/17 (pt w/o complaint) Principal diagnosis: Day # 1 s/p section breech Patient reports: appetite normal, voiding normally, pain well controlled : doing well Objective - Vital Signs Latest vital signs: Vital Signs Temp Pulse Resp BP BP Pulse Ox 09/10/17 04:49 18 09/10/17 04:19 18 09/10/17 04:00 98.6 F 67 18 103/81 09/10/17 00:00 98.6 F 71 18 102/75 09/09/17 20:23 18 09/09/17 19:53 18 09/09/17 19:30 98.7 F 66 18 105/69 09/09/17 17:09 97.8 F 18 102/65 09/09/17 14:50 97.9 F 79 20 120/80 09/09/17 13:50 16 110/48 100 09/09/17 13:45 98.2 F 18 100/63 100 09/09/17 13:40 12 104/54 100 09/09/17 13:30 12 110/51 100 09/09/17 13:20 13 105/72 100 09/09/17 13:10 10 L 91/68 100 09/09/17 13:00 11 L 98/55 99 09/09/17 12:54 9 L 99 09/09/17 10:24 78 100 09/09/17 10:19 79 100 09/09/17 10:18 78 113/74 09/09/17 10:14 77 100 Intake and Output 09/09/17 09/10/17 09/10/17 22:59 06:59 14:59 Intake Total 540 1240 Balance 540 1240 Intake: IV 1000 D5lr 1,000 ml @ 125 mls/ 1000 hr IV DIRECT YADIRA Rx#: [id number] Oral 240 Intake, Free Water 540 Other: Total, Intake Amount 240 - Exam Breasts: Present: normal, Cardiovascular: Present: Regular rate Lungs: Present: Clear to auscultation, Normal air movement Abdomen: Present: normal appearance, soft, normal bowel sounds Uterus: Present: normal, firm, fundal height below umbilicus Extremities: Present: normal Deep Tendon Reflex Grade: Normal +2 Incision: Present: normal, dry, intact, dressed (to be removed) - Labs Labs: Abnormal lab results 09/09/17 09/10/17 Range/Units 10:30 01:02 Hgb 9.9 L 8.2 L (10.1-14.3) gm/dl Hct 25.7 L (30.3-42.9) % MCV 73 L (79-97) fl MCH 23 L (28-32) pg RDW 17.0 H (13.2-15.2) % Lymph % (Auto) 36.2 H (13.4-35.0) % [place] % (Auto) 11.4 H (0.0-7.3) %
[2017-09-10] MEDS: NORCO 5/325 PO PRN ×2 (08:14→22:11)
[2017-09-10] MEDS ORDERED: FEOSOL PO SCH (10:00)
[2017-09-10] MEDS: FEOSOL PO SCH ×2 (10:59→22:11)
[2017-09-10] MEDS: MOTRIN PO PRN ×2 (11:11→18:24)
[2017-09-10] MEDS: MILK OF MAGNESIA PO PRN (22:13)
[2017-09-11] MEDS: MOTRIN PO PRN ×3 (00:46→11:45)
[2017-09-11 07:36] VITALS: BP 104/66
--- NOTE | 2017-09-11 08:25 | Discharge Summary ---
Providers - Providers Date of Admission: 09/09/17 09:38 Date of discharge: 09/11/17 (pt agrees to d/c) Attending physician: JEREMÍAS BYRD 09/09/17 14:33 Consult to Linux Admin Engineer [CONS] Routine Reason For Exam: Primary care physician: JEREMÍAS BYRD Hospitalization Reason for admission: section Delivery: Procedure: primary low transverse Episiotomy: none Laceration: none Incision: normal, dry, intact Other procedures: none complications: none Discharge diagnosis: IUP at term delivered [place] baby: female Hospital course: uncomplicated section BREECH Pt awake feeding NB No c/o voiced. VSS FF below umb Lochia scant Incision D&I Chronic anemia po iron RX @ d/c No s/sx of anemia. Doing well s/p c/s P: d/c today with instructions RTO 1 week post op check RX provided Condition at discharge: Good Disposition: DC-01 TO HOME OR SELFCARE - Discharge Diagnoses (1) delivery delivered Status: Acute Comment: RTO 1 week postop care Plan - Discharge Medications Prescriptions: Ibuprofen [Motrin 800 MG tab] 800 mg PO Q6H PRN #30 tablet PRN Reason: Pain oxyCODONE /ACETAMINOPHEN [Percocet 5/325 mg] 1 - 2 tab PO Q4H PRN #30 tablet PRN Reason: Pain, Moderate - Provider Discharge Summary Activity: routine, no sex for 6 weeks, no heavy lifting 4 weeks, no strenuous exercise Diet: routine Instructions: routine Additional instructions: [] Smoking cessation referral if applicable(refer to patient education folder for contact #) [] Refer to [facility] Booklet Call your doctor immediately for: * Fever > 100.5 * Heavy vaginal bleeding ( >1 pad per hour) * Severe persistent headache * Shortness of breath * Reddened, hot, painful area to leg or breast * Drainage or odor from incision. * Keep incision clean and dry at all times and follow doctor's instructions regarding bathing/showering - Follow up plan Follow up: JEREMÍAS BYRD MD [Primary Care Provider] - 7 Days (Congratulations! Please call [phone] to schedule your postoperative visit in 1 week. Take medications as prescribed. Call with concerns.)
[2017-09-11] MEDS: NORCO 5/325 PO PRN (11:45)
[2017-09-11] MEDS: MILK OF MAGNESIA PO PRN (11:46)
[2017-09-11] MEDS: FEOSOL PO SCH (11:47)
== END 2017-09-11 14:00 | disposition home or self-care (01) | DRG 765 ==
LOC: APU 09:38 → OB 18:07
PROVIDERS: ADMIT Obstetrics & Gynecology; ATTEND Obstetrics & Gynecology
PROC: 10D00Z1 Extraction of Products of Conception, Low, Open Approach (ICD-10-PCS; principal; 2017-09-09)
PROC: 04QY0ZZ Repair Lower Artery, Open Approach (ICD-10-PCS; 2017-09-09)
DX: O32.1XX0 Maternal care for breech presentation, not applicable or unspecified (principal); S35.53 Injury of uterine artery or vein; Z37.0 Single live birth; Z3A.39 39 weeks gestation of pregnancy; Z79.899 Other long term (current) drug therapy; O77.0 Labor and delivery complicated by meconium in amniotic fluid; Y83.8 Other surgical procedures as the cause of abnormal reaction of the patient, or of later complication, without mention of misadventure at the time of the procedure; Y92.234 Operating room of hospital as the place of occurrence of the external cause; O75.89 Other specified complications of labor and delivery
CPT/HCPCS: 36415; 76815; 85014; 85018; 85025; 86592; 86850; 86900; 86901; J0690; J1885; J2270; J2370; J2405; J2590; J2765; J7120; J7121

== ENCOUNTER 2018-06-29 12:48 | Emergency (ER) | payer SELFPAY ==
[2018-06-29 13:25] VITALS: BP 105/74
--- NOTE | 2018-06-29 13:26 | Emergency Department Report ---
Blank Doc - Documentation Documentation: 27 y o female presents to ED cc of n/v x 3 weeks, states lower pelvic pain, recent C/S x september LMP UA/upt,
--- NOTE | 2018-06-29 14:23 | Emergency Department Report ---
ED Female HPI - General Chief complaint: Nausea/Vomiting/Diarrhea Stated complaint: VOMIT 2WKS/LIGHT HEADED Time Seen by Provider: 06/29/18 13:20 Source: patient Mode of arrival: Ambulatory Limitations: No Limitations - History of Present Illness Complaint: pelvic pain -: week(s) (2) Severity: moderate Quality: other (pressure) Consistency: constant - Related Data Sexually active: Yes Home Medications Medication Instructions Recorded Confirmed Last Taken Vit-Fe Fumar-FA [ 1 tab PO QDAY 04/12/16 09/09/17 09/08/17 08:00 Vitamin] 1 TAB Previous Rx's Medication Instructions Recorded Last Taken Type Ibuprofen [Motrin 800 MG tab] 800 mg PO Q6H PRN #30 tablet 09/09/17 Unknown Rx oxyCODONE /ACETAMINOPHEN [Percocet 1 - 2 tab PO Q4H PRN #30 tablet 09/09/17 Unknown Rx 5/325 mg] Allergies Allergy/AdvReac Type Severity Reaction Status Date / Time No Known Allergies Allergy Verified 04/12/16 15:48 ED Review of Systems ROS: Stated complaint: VOMIT 2WKS/LIGHT HEADED Other details as noted in HPI Comment: All other systems reviewed and negative Constitutional: denies: chills, fever Respiratory: denies: cough Cardiovascular: denies: chest pain, palpitations, dyspnea on exertion Gastrointestinal: abdominal pain, nausea, vomiting. denies: diarrhea, constipation, hematemesis, hematochezia Genitourinary: denies: urgency, dysuria ED Past Medical Hx - Past Medical History Previous Medical History?: No Hx Hypertension: No Hx Congestive Heart Failure: No Hx Diabetes: No Hx Deep Vein Thrombosis: No Hx Renal Disease: No Hx Sickle Cell Disease: No Hx Seizures: No Hx Asthma: No Hx COPD: No Hx HIV: No - Surgical History Past Surgical History?: Yes Additional Surgical History: - Social History Smoking Status: Never Smoker Substance Use Type: None - Medications Home Medications: Home Medications Medication Instructions Recorded Confirmed Last Taken Type Vit-Fe Fumar-FA [ 1 tab PO QDAY 04/12/16 09/09/17 09/08/17 08:00 History Vitamin] 1 TAB Ibuprofen [Motrin 800 MG tab] 800 mg PO Q6H PRN #30 tablet 09/09/17 Unknown Rx oxyCODONE /ACETAMINOPHEN [Percocet 1 - 2 tab PO Q4H PRN #30 tablet 09/09/17 Unknown Rx 5/325 mg] ED Physical Exam - General Limitations: No Limitations General appearance: alert, in no apparent distress - Head Head exam: Present: atraumatic, normocephalic, normal inspection - Eye Eye exam: Present: normal appearance, PERRL - ENT ENT exam: Present: normal exam, normal orophraynx, mucous membranes moist - Neck Neck exam: Present: normal inspection, full ROM. Absent: tenderness, meningismus, lymphadenopathy, thyromegaly - Respiratory Respiratory exam: Present: normal lung sounds bilaterally - Cardiovascular Cardiovascular Exam: Present: regular rate, normal rhythm, normal heart sounds - GI/Abdominal GI/Abdominal exam: Present: soft, normal bowel sounds. Absent: distended, tenderness, guarding, rebound, rigid - Extremities Exam Extremities exam: Present: normal inspection, full ROM, normal capillary refill. Absent: pedal edema, calf tenderness - Back Exam Back exam: Present: normal inspection, full ROM. Absent: tenderness, CVA tenderness (R), CVA tenderness (L), muscle spasm, paraspinal tenderness, vertebral tenderness - Neurological Exam Neurological exam: Present: alert, oriented X3, CN II-XII intact, normal gait, reflexes normal - Skin Skin exam: Present: warm, intact, normal color ED Course Vital Signs 06/29/18 13:21 Temperature 98.1 F Pulse Rate 89 Respiratory 18 Rate Blood Pressure 105/74 O2 Sat by Pulse 98 Oximetry Critical care attestation.: If time is entered above; I have spent that time in minutes in the direct care of this critically ill patient, excluding procedure time. ED Disposition Clinical Impression: , Nausea & vomiting Disposition: DC-01 TO HOME OR SELFCARE Is pt being admited?: No Condition: Stable Instructions: (ED), Acute Nausea and Vomiting (ED) Referrals: MILEY GILLIS MD [Primary Care Provider] - 3-5 Days [facility] [Provider Group] - 3-5 Days
[2018-06-29 14:30] LABS: Bacteria,Urine 1+ /HPF (Negative); Bilirubin,Urine NEG (Negative); Blood,Urine NEG (Negative); Color,Urine Yellow (Yellow); Mucus,Urine 3+ /HPF; Protein,Urine <15 mg/dL mg/dL (Negative)
[2018-06-29 14:32] LABS: HCG Qualitative,Urine Positive (Negative)
== END 2018-06-29 14:49 | disposition home or self-care (01) ==
LOC: ED 12:48
DX: O21.9 Vomiting of pregnancy, unspecified (principal); O26.891 Other specified pregnancy related conditions, first trimester; R10.2 Pelvic and perineal pain; Z3A.01 Less than 8 weeks gestation of pregnancy
CPT/HCPCS: 81001; 81025

== ENCOUNTER 2019-02-08 15:42 | Outpatient (CLI) | payer MEDICAID ==
[2019-02-08 16:38] VITALS: BP 112/72
--- NOTE | 2019-02-09 06:48 | Ultrasound Report ---
US OB BPP wo non-stress, US OB limited INDICATION / CLINICAL INFORMATION: ptl. COMPARISON: None available. FINDINGS: Single, viable intrauterine in breech presentation. heart rate 1:30. Amniotic fluid volume is normal, with a fluid index of 16 cm. Placenta is anterior and free of the cervical os. Biophysical profile breathing movements: 2 movements: 2 posture and tone: 2 Amniotic fluid volume: 2 Biophysical profile score 8/8 IMPRESSION: 1. Viable intrauterine . 2. Normal amniotic fluid volume. 3. Normal biophysical profile score. Signer Name: Geovanny Jung MD Signed: 02/09/2019 6:44 AM Workstation Name: [id number]
== END 2019-02-08 20:31 | disposition home or self-care (01) ==
LOC: TRG 15:42
PROVIDERS: ATTEND Obstetrics & Gynecology
DX: O47.1 False labor at or after 37 completed weeks of gestation (principal); Z3A.40 40 weeks gestation of pregnancy
CPT/HCPCS: 76815; 76819